=== PATIENT | male | born 1965 | race Caucasian/White ===

== ENCOUNTER 2024-06-12 15:30 | Emergency (ER) | payer MEDICARE ==
[~2024-06-12] VITALS: Ht 182.9 cm; Wt 68.0 kg
[2024-06-12] VITALS (17 sets, daily range): BP systolic 122–153; BP diastolic 77–129
[2024-06-12] MEDS ORDERED: ALBUTEROL SULFATE 2.5 MG VIAL IN ONE (16:15)
[2024-06-12 16:46] LABS: BASO% 0.1 % (0-3); EOS% 0.1 % (0-8); HEMATOCRIT 39.8 % (39.0-50.0); HEMOGLOBIN 13.3 g/dl (14.0-18.0); IMMATURE GRANULOCYTES 0.2 % (0.0-5.0); MEAN CELL VOLUME 92.8 fL CALC (80.0-100.0); MEAN CORPUSCULAR HGB CONC 33.4 g/dL CAL (32.0-36.0); MONO% 8.7 % (2-13); NEUT# 9.02 thou/uL (1.82-7.42); NEUT% 84.9 % (42-76); RED BLOOD COUNT 4.29 mill/uL (4.70-6.10); RED CELL DISTRI WIDTH 15.1 % (11.5-15.5)
[2024-06-12 16:58] LABS: ALKALINE PHOSPHATASE 128 u/l (38-126); ANION GAP 7 (6-22 (CALC)); BILIRUBIN, TOTAL 1.4 mg/dL (0.2-1.3); BUN 16 mg/dL (9-20); BUN/CREATININE RATIO 30 (12-20 (CALC)); CARBON DIOXIDE 30 mmol/l (22-30); CHLORIDE 95 mmol/l (95-108); CREATININE 0.5 mg/dL (0.7-1.3); ESTIMATED GFR 117 ML/MIN (>=90 (CALC)); POTASSIUM 3.9 mmol/l (3.5-5.1); SGOT/AST 21 u/l (17-59); SODIUM 128 mmol/l (137-146); TOTAL PROTEIN 7.1 g/dL (6.3-8.2)
[2024-06-12] MEDS ORDERED: AZITHROMYCIN 500 MG in SODIUM CHLORIDE 0.9% 250 ML IV ONE (17:45)
[2024-06-12] MEDS ORDERED: ZITHROMAX Z-PA250 MG PO (18:27)
== END 2024-06-12 19:30 | disposition home or self-care (01) ==
LOC: ED 15:30
PROVIDERS: Family Medicine
DX: C34.91 Malignant neoplasm of unspecified part of right bronchus or lung (principal); C78.02 Secondary malignant neoplasm of left lung; R91.8 Other nonspecific abnormal finding of lung field; J44.9 Chronic obstructive pulmonary disease, unspecified; Z86.711 Personal history of pulmonary embolism; Z79.60 Long term (current) use of unspecified immunomodulators and immunosuppressants; Z99.81 Dependence on supplemental oxygen; Z86.718 Personal history of other venous thrombosis and embolism

== ENCOUNTER 2024-06-14 23:32 | Inpatient (IN) | payer MEDICARE ==
[~2024-06-14] VITALS: Ht 182.9 cm; Wt 64.0 kg
[~2024-06-14 23:32] MED LIST: ZITHROMAX Z-PA250 MG PO
[2024-06-14 23:42] VITALS: BP 156/105
[2024-06-15] VITALS (102 sets, daily range): BP systolic 38–165; BP diastolic 47–110
[2024-06-15 00:16] LABS: BASO% 0.2 % (0-3); EOS% 0.3 % (0-8); HEMATOCRIT 40.8 % (39.0-50.0); HEMOGLOBIN 13.7 g/dl (14.0-18.0); IMMATURE GRANULOCYTES 0.2 % (0.0-5.0); LYMPH% 6.7 % (15-41); MEAN CELL VOLUME 92.1 fL CALC (80.0-100.0); MEAN CORPUSCULAR HGB 30.9 pG CALC (26.0-32.0); MEAN CORPUSCULAR HGB CONC 33.6 g/dL CAL (32.0-36.0); MONO% 8.3 % (2-13); NEUT# 8.04 thou/uL (1.82-7.42); NEUT% 84.3 % (42-76); RED BLOOD COUNT 4.43 mill/uL (4.70-6.10); RED CELL DISTRI WIDTH 14.9 % (11.5-15.5)
[2024-06-15 00:25] LABS: ALKALINE PHOSPHATASE 163 u/l (38-126); ANION GAP 11 (6-22 (CALC)); BILIRUBIN, TOTAL 1.7 mg/dL (0.2-1.3); BUN 17 mg/dL (9-20); BUN/CREATININE RATIO 37 (12-20 (CALC)); CALCULATED LDLCHOLESTEROL 146 mg/dL (62-129 (CALC)); CARBON DIOXIDE 26 mmol/l (22-30); CHLORIDE 94 mmol/l (95-108); CHOLESTEROL HDL RATIO 3.7 (<4.4 (CALC)); CREATININE 0.4 mg/dL (0.7-1.3); ESTIMATED GFR 125 ML/MIN (>=90 (CALC)); HDL CHOLESTEROL 62 mg/dL (39.0-59.0); POTASSIUM 4.1 mmol/l (3.5-5.1); SGOT/AST 27 u/l (17-59); SODIUM 127 mmol/l (137-146); TOTAL CHOLESTEROL 226 mg/dl (0-199); TOTAL PROTEIN 7.3 g/dL (6.3-8.2); TOTAL TRIGLYCERIDES 90 mg/dl (0-149); VLDL CHOLESTROL 18 mg/dl (4-45 (CALC))
[2024-06-15 00:28] LABS: INTERNATIONAL NORMALIZED RATIO 1.4 RATIO (0.7-1.3)
[2024-06-15 00:29] LABS: PROTHROMBIN TIME 13.2 SECONDS (9.0-12.5)
[2024-06-15] MEDS ORDERED: SODIUM CHLORIDE 0.9% 1,000 ML IV ONE (01:25)
[2024-06-15 03:06] LABS: URINE BLOOD DIPSTICK Trace-intact (NEGATIVE); URINE COLOR Yellow; URINE GLUCOSE - DIPSTICK Negative (NEGATIVE); URINE KETONE 40 mg/dL (NEGATIVE); URINE LEUK ESTERASE Negative (NEGATIVE); URINE NITRITE - DIPSTICK Negative (Negative); URINE PH 5.5 (4.5-8.0); URINE PROTEIN - DIPSTICK Negative (NEG-TRACE); URINE UROBILINOGEN - DIPSTICK 0.2 E.U./dL (0.2)
[2024-06-15] MEDS ORDERED: IBUPROFEN 800 MG/TAB PO PRN (03:30)
[2024-06-15] MEDS ORDERED: ONDANSETRON 4 MG/TAB ODT PO PRN (03:30)
[2024-06-15] MEDS ORDERED: FAMOTIDINE 10MG/ML 2ML SDV IV PRN (03:30)
[2024-06-15] MEDS ORDERED: Polyethylene Glycol 3350 17 GM/PKT PO PRN (03:30)
[2024-06-15] MEDS ORDERED: ALUM & MAG HYDROX-SIMETHICONE 30 ML PO PRN (03:30)
[2024-06-15] MEDS ORDERED: ONDANSETRON HCl 4 MG/2 ML SDV IV PRN ×2 (03:30→11:20)
[2024-06-15] MEDS ORDERED: ASPIRIN 81 MG/TAB PO ONE (03:35)
[2024-06-15] MEDS ORDERED: ELIQUIS5 MG PO (03:48)
[2024-06-15] MEDS ORDERED: LASIX 40 MG TAB40 MG PO (03:49)
[2024-06-15] MEDS ORDERED: ZOFRAN4 MG/TAB PO (03:50)
[2024-06-15] MEDS ORDERED: FOLIC ACID1 MG PO (03:50)
[2024-06-15] MEDS ORDERED: LACTATED RINGER'S 1,000 ML IV SCH (03:55)
[2024-06-15] MEDS ORDERED: SODIUM CHLORIDE 0.9% 1,000 ML IV PRN ×2 (04:55→16:20)
[2024-06-15] MEDS ORDERED: MAGNESIUM HYDROXIDE 30 ML UDC PO PRN (04:55)
[2024-06-15] MEDS ORDERED: ACETAMINOPHEN 325 MG/TAB PO PRN (04:55)
[2024-06-15] MEDS ORDERED: ASPIRIN 81 MG/TAB PO SCH ×2 (09:00)
[2024-06-15 11:47] LABS: BASO% 0.1 % (0-3); HEMATOCRIT 41.5 % (39.0-50.0); HEMOGLOBIN 13.7 g/dl (14.0-18.0); IMMATURE GRANULOCYTES 0.7 % (0.0-5.0); LYMPH% 4.6 % (15-41); MEAN CELL VOLUME 94.3 fL CALC (80.0-100.0); MEAN CORPUSCULAR HGB 31.1 pG CALC (26.0-32.0); MONO% 8.9 % (2-13); NEUT# 9.39 thou/uL (1.82-7.42); NEUT% 85.7 % (42-76); RED BLOOD COUNT 4.4 mill/uL (4.70-6.10); RED CELL DISTRI WIDTH 14.9 % (11.5-15.5)
[2024-06-15 11:53] LABS: ALBUMIN 3.8 g/dL (3.2-5.0); CREATININE 0.4 mg/dL (0.7-1.3); MAGNESIUM 1.9 mg/dL (1.6-2.3); POTASSIUM 4.6 mmol/l (3.5-5.1); TOTAL PROTEIN 6.8 g/dL (6.3-8.2)
[2024-06-15] MEDS ORDERED: FOLIC ACID 1 MG/TAB PO SCH (12:00)
[2024-06-15] MEDS ORDERED: APIXABAN BASE 5 MG TAB PO SCH (12:00)
[2024-06-15] MEDS ORDERED: AZITHROMYCIN 250 MG/TAB PO SCH (12:00)
[2024-06-15] MEDS ORDERED: PROPOFOL 100 ML IV ONE (15:19)
[2024-06-15] MEDS ORDERED: NOREPINEPHRINE BITARTRATE 4 MG/VIAL SDV ONE (15:23)
[2024-06-15] MEDS ORDERED: SODIUM CHLORIDE 0.9% 100 ML IV ONE (15:23)
[2024-06-15] MEDS ORDERED: SODIUM CHLORIDE 0.9% 500 ML IV ONE (15:25)
[2024-06-15] MEDS ORDERED: NOREPINEPHRINE BITARTRATE 4 MG in DEXTROSE 5% 250 ML IV PRN (15:25)
[2024-06-15] MEDS ORDERED: SODIUM CHLORIDE 0.9% 250 ML IV ONE (15:27)
[2024-06-15] MEDS ORDERED: PROPOFOL 100 ML IV PRN (15:30)
[2024-06-15] MEDS ORDERED: CEFEPIME HYDROCHLORIDE 2 GM in SODIUM CHLORIDE 0.9% 100 ML IV SCH (17:00)
[2024-06-15] MEDS ORDERED: DEXTROSE 5% 250 ML IV ONE (17:01)
[2024-06-15 17:43] LABS: HEMATOCRIT 37.1 % (39.0-50.0); HEMOGLOBIN 12.2 g/dl (14.0-18.0); IMMATURE GRANULOCYTES 0.2 % (0.0-5.0); LYMPH% 2.8 % (15-41); MEAN CELL VOLUME 95.9 fL CALC (80.0-100.0); MEAN CORPUSCULAR HGB 31.5 pG CALC (26.0-32.0); MEAN CORPUSCULAR HGB CONC 32.9 g/dL CAL (32.0-36.0); MONO% 7.3 % (2-13); NEUT# 11.18 thou/uL (1.82-7.42); NEUT% 89.7 % (42-76); RED BLOOD COUNT 3.87 mill/uL (4.70-6.10)
[2024-06-15] MEDS ORDERED: Pantoprazole Sodium 40 MG VIAL (Protonix) IV SCH (18:00)
[2024-06-15 18:04] LABS: ALBUMIN 3.4 g/dL (3.2-5.0); ALKALINE PHOSPHATASE 134 u/l (38-126); ANION GAP 8 (6-22 (CALC)); BILIRUBIN, TOTAL 0.9 mg/dL (0.2-1.3); BUN 19 mg/dL (9-20); BUN/CREATININE RATIO 33 (12-20 (CALC)); CARBON DIOXIDE 29 mmol/l (22-30); CHLORIDE 96 mmol/l (95-108); CREATININE 0.6 mg/dL (0.7-1.3); ESTIMATED GFR 111 ML/MIN (>=90 (CALC)); MAGNESIUM 1.9 mg/dL (1.6-2.3); POTASSIUM 4.5 mmol/l (3.5-5.1); SGOT/AST 22 u/l (17-59); SODIUM 128 mmol/l (137-146); TOTAL PROTEIN 6.3 g/dL (6.3-8.2)
[2024-06-15] MEDS ORDERED: VANCOMYCIN HCL 1 GM in SODIUM CHLORIDE 0.9% 250 ML IV SCH (20:00)
[2024-06-16] VITALS: BP 100/67
[2024-06-16 00:15] VITALS: BP 106/68
[2024-06-16 00:30] VITALS: BP 106/73
[2024-06-16] MEDS ORDERED: VANCOMYCIN HCL 1 GM in SODIUM CHLORIDE 0.9% 250 ML IV SCH (08:00)
[2024-06-16] MEDS ORDERED: CEFEPIME HYDROCHLORIDE 2 GM in SODIUM CHLORIDE 0.9% 100 ML IV SCH (17:00)
== END 2024-06-16 01:20 | disposition short-term general hospital (02) | DRG 208 ==
LOC: ED 23:32 → ED-I 06-15 02:55 → ED 06-15 03:29 → MS2 06-15 03:30 → ICU 06-15 15:30
PROVIDERS: Family Medicine; ADMIT Student in an Organized Health Care Education/Training Program; ATTEND Student in an Organized Health Care Education/Training Program
PROC: 0BH17EZ Insertion of Endotracheal Airway into Trachea, Via Natural or Artificial Opening (ICD-10-PCS; principal; 2024-06-15)
PROC: 5A1945Z Respiratory Ventilation, 24-96 Consecutive Hours (ICD-10-PCS; 2024-06-15)
PROC: 0T9B70Z Drainage of Bladder with Drainage Device, Via Natural or Artificial Opening (ICD-10-PCS; 2024-06-15)
PROC: 06HY33Z Insertion of Infusion Device into Lower Vein, Percutaneous Approach (ICD-10-PCS; 2024-06-15)
DX: J18.9 Pneumonia, unspecified organism (principal); J96.02 Acute respiratory failure with hypercapnia; J96.01 Acute respiratory failure with hypoxia; E87.1 Hypo-osmolality and hyponatremia; C34.92 Malignant neoplasm of unspecified part of left bronchus or lung; C77.1 Secondary and unspecified malignant neoplasm of intrathoracic lymph nodes; J44.0 Chronic obstructive pulmonary disease with (acute) lower respiratory infection; I95.9 Hypotension, unspecified; G56.22 Lesion of ulnar nerve, left upper limb; Z86.718 Personal history of other venous thrombosis and embolism; Z79.01 Long term (current) use of anticoagulants; Z99.81 Dependence on supplemental oxygen; Z79.60 Long term (current) use of unspecified immunomodulators and immunosuppressants; Z86.711 Personal history of pulmonary embolism; Z92.3 Personal history of irradiation
CPT/HCPCS: A9579; J0692; J2470; Q9967